=== PATIENT | female | born 1985 | race Caucasian/White ===

== ENCOUNTER 2016-11-17 09:26 | Day surgery (SDC) | payer OTHER ==
[2016-11-10 13:59] VITALS: BMI 24.3
--- NOTE | 2016-11-17 07:01 | HP ---
History & Physical Update - History History: No Change - Physical Physical: No Change - Assessment Assessment: No Change - Plan Plan: No Change (This is my first time meeting the patient. Introduced myself and informed her that I will be assisting Dr. Mendiola during the procedure. Patient is ok with it.)
[~2016-11-17 09:26] MED LIST: CEFAZOLIN 1 GM in DEXTROSE 5%-WATER - 100 ML IVPB ONE; traMADol HCL 50 MG TABLET PO ONE
[2016-11-17] MEDS ORDERED: LIDOCAINE HCL/PF 2% SDV 5ML VIAL ONE (10:38)
[2016-11-17] MEDS ORDERED: ROCURONIUM BROMIDE 50 MG/5 ML VIAL ONE (10:39)
[2016-11-17] MEDS ORDERED: MIDAZOLAM HCL 2 MG/2 ML SINGLE DOSE VIAL ONE (10:39)
[2016-11-17] MEDS ORDERED: PROPOFOL 20 ML ONE ×5 (10:41→12:36)
[2016-11-17] MEDS ORDERED: KETAMINE HCL 200 MG/20 ML VIAL ONE (11:13)
[2016-11-17] MEDS ORDERED: ceFAZolin SODIUM 1 GM VIAL ONE (11:26)
[2016-11-17] MEDS ORDERED: ONDANSETRON 4 MG/2 ML VIAL ONE ×2 (11:27→13:29)
[2016-11-17] MEDS ORDERED: DEXAMETHASONE SOD PHOSPHATE 4 MG/1 ML VIAL ONE (11:27)
[2016-11-17] MEDS ORDERED: PHENYLEPHRINE HCL 10 MG/1 ML SINGLE DOSE VIAL ONE (11:36)
[2016-11-17] MEDS ORDERED: ONDANSETRON 4 MG/2 ML VIAL IVPUSH PRN (11:58)
[2016-11-17] MEDS ORDERED: LACTATED RINGERS SOLUTION 1,000 ML IV SCH ×2 (12:00→13:45)
--- NOTE | 2016-11-17 13:29 | OP ---
Operative Note - Note: Operative Date: 11/17/16 Pre-Operative Diagnosis: Cervical stenosis, radiculopathy Operation: Anterior cervical discectomy/fusion/instrumentation and allograft implant; neuromonitoring Post-Operative Diagnosis: Same as Pre-op Surgeon: Ovidio Mendiola Manager Lab: Devyn Carlson Anesthesiologist/REGISTERED LAND SURVEYOR: Estella Vitale Anesthesia: General Specimens Removed: C5-C6 disc Estimated Blood Loss (mls): 10 Fluid Volume Replaced (mls): 1,000 Operative Report Dictated: Yes
[2016-11-17] MEDS ORDERED: ACETAMINOPHEN 1000 MG/100 ML VIAL (NON FORMULARY) IVPB ONE (13:30)
--- NOTE | 2016-11-17 13:30 | SURG ---
Surgery Clinical Fellow Note Clinical Fellow: Devyn Carlson PA-C Date of Service: 11/17/16 Diagnosis: Cervical stenosis, radiculopathy Procedure: Anterior cervical discectomy/fusion/instrumentation C5-C6 and allograft implant ; neuromonitoring I was present for the entirety of the operative procedure. For further detail, please refer to operative report. Visit type - Case Type Case Type: Scheduled Admission - New patient This patient is new to me today: Yes Date on this admission: 11/17/16
[2016-11-17] MEDS ORDERED: IBUPROFEN 400 MG TABLET (FP) PO PRN (13:41)
[2016-11-17] MEDS ORDERED: HYDROCODONE PO PRN (13:41)
[2016-11-17] MEDS ORDERED: ACETAMINOPHEN PO PRN (13:41)
[2016-11-17] MEDS ORDERED: NAPROXEN SODIUM 440 MG PO PRN (13:41)
[2016-11-17] MEDS ORDERED: CYCLOBENZAPRINE HCL 10 MG TABLET (FP) PO PRN (13:41)
[2016-11-17] MEDS ORDERED: [UNRECOGNIZED DRUG - OTHER] PO PRN (13:41)
[2016-11-17] MEDS ORDERED: morphine CARPU-JECT 4 MG/1 ML DISP.SYRIN IVPUSH PRN (13:42)
[2016-11-17] MEDS ORDERED: KETOROLAC TROMETHAMINE 30 MG/1 ML VIAL IVPUSH PRN (13:42)
[2016-11-17] MEDS ORDERED: diazePAM 5 MG TABLET PO ONE (13:45)
[2016-11-17] MEDS ORDERED: diazePAM 5 MG TABLET ONE (13:49)
[2016-11-17] MEDS ORDERED: ACETAMINOPHEN INJECTION 100 ML IVPB ONE (13:50)
[2016-11-17] MEDS ORDERED: PROMETHAZINE HCL 25 MG/1 ML VIAL ONE (14:24)
[2016-11-17] MEDS ORDERED: PROMETHAZINE HCL 25 MG/1 ML VIAL IVPUSH ONE ×2 (14:25→14:35)
[2016-11-17] MEDS: CEFAZOLIN 1 GM/D5W 50 ML IVPB SCH (17:38)
[2016-11-17] MEDS: HYDROmorphone HCL CARPU-JECT 2 MG/1 ML DISP.SYRIN IVPB PRN ×2 (17:45→21:45)
[2016-11-17] MEDS: ONDANSETRON 4 MG/2 ML VIAL IVPB PRN (19:33)
[2016-11-18] MEDS: CEFAZOLIN 1 GM/D5W 50 ML IVPB SCH (01:08)
[2016-11-18] MEDS: ONDANSETRON 4 MG/2 ML VIAL IVPB PRN ×2 (01:31→05:23)
--- NOTE | 2016-11-18 02:00 | OP ---
DATE OF OPERATION: 11/17/2016 PREOPERATIVE DIAGNOSIS: Herniated disk C5-6. POSTOPERATIVE DIAGNOSIS: Herniated disk C5-6. PROCEDURE PERFORMED: Anterior cervical diskectomy, fusion C5-6, placement instrumentation C5-6, placement of prosthetic cage. SURGEON: Oviido Mendiola M.D. ONLINE ADVERTISING MANAGER: Carrie Das ESTIMATED BLOOD LOSS: 50 mL INTRAVENOUS FLUIDS: Per anesthesia. COMPLICATIONS: There were none. DISPOSITION: Patient brought to the PACU in stable condition. INDICATION FOR SURGERY: The patient is a 31-year-old female who has been suffering from significant pain from her neck down her arm. X-rays and MRI were completed, which noted she had a herniated disk at C5-6. She had gone through an exhaustive course of treatment for this which included medications, physical therapy, as well as injections. Unfortunately, the pain continued to persist in spite of all this. At this point, risks, benefits, and alternatives were discussed and the patient consented to surgery. OPERATIVE NOTE: Patient is brought to the operating room by anesthesia staff. After appropriate patient identification is performed, general anesthesia was administered. Appropriate anesthetic lines were placed. Neural monitors were attached. She is placed supine, the orbit of the arms tucked into the side, the shoulder rolls placed underneath her neck to extend her neck to the point that she could tolerate in the preoperative holding area. A needle was taped onto her neck to charlee off the C5-6 level, and x-rays was taken to confirm this is correct. [place] were removed, and 10 mL of lidocaine with epinephrine was injected into her neck at this time. Her neck was prepped and draped in a sterile manner. At this point a timeout was completed. A 2-inch incision was made on the left side of her neck. Dissection was carried down to the fascia. The platysma was cut in line of the skin incision. Next interval between the sternocleidomastoid muscle as well as strap muscles were developed. Next the interval between the carotid sheath as well as tracheal esophagus was developed. Peanuts were used to elevate off the peritoneal fascia. A spinal needle was placed into the C5-6 disk. An x-ray was taken to confirm this was correct. At this point, the needle was removed. The longus colli muscles were elevated off, and retractor blades were placed in it. A knife was used to incise the disk. Moreno pins were placed into the body of C5 and C6, and distraction was applied. At this point, using a series of pituitaries, Kerrisons and curets, a diskectomy was completed, the end plates were decorticated at this time. A size 7 bone cage filled with bone graft was placed in. Moreno pins were removed. A screw was placed into the body of C5. A screw was placed into the body of C6. AP and lateral x-rays confirmed the instrumentation being in good position. Final tightening was performed. The platysma was closed with 2-0 Vicryl suture. Skin was closed with 3-0 Monocryl suture. Dermabond was applied. Steri-Strips were applied. Sterile dressing was applied. Patient was placed supine on OR bed, extubated in the OR, and brought to the PACU in stable condition. Richardson TINEO/[id number]
[2016-11-18] MEDS: HYDROmorphone HCL CARPU-JECT 2 MG/1 ML DISP.SYRIN IVPB PRN (03:46)
[2016-11-18 05:42] VITALS: BP 92/53; PULSE 55; TEMP 97.5
[2016-11-18] MEDS ORDERED: diphenhydrAMINE HCL 50 MG CAPSULE PO STA (07:01)
[2016-11-18] MEDS ORDERED: diphenhydrAMINE HCL 25 MG CAPSULE (FP) PO ONE (07:25)
--- NOTE | 2016-11-20 12:56 | PATH ---
Surgical Pathology Report Patient Name: NICOLE ARREOLA [facility]. Rec. #: [id number] /Age/Gender: 1985 (Age: 31) / F Account: [id number] Location: [facility], [facility] AMBULATORY Taken: 11/17/2016 Received: 11/18/2016 Reported: 11/20/2016 Physicians: Ovidio Mendiola M.D. Specimen(s) Received C5,6 DISC Clinical History Cervical stenosis Final Diagnosis INTERVERTEBRAL DISC, C5-6, PARTIAL EXCISION: PORTIONS OF INTERVERTEBRAL DISC. Electronically Signed Carter Joshua M.D. Gross Description Received in formalin, labeled "C5-6 disc," is a 2.0 x 1.4 x 0.3 cm aggregate of multiple riojas fragments of fibrocartilaginous tissue. The specimen is submitted in toto in one cassette. 11/19/2016 [facility]
== END 2016-11-18 10:10 | disposition home or self-care (01) ==
LOC: FASU 09:26 → FM/S 15:35 → FASU 11-18 10:10
PROVIDERS: ATTEND Orthopaedic Surgery Orthopaedic Surgery of the Spine
PROC: 0RG10A0 Fusion of Cervical Vertebral Joint with Interbody Fusion Device, Anterior Approach, Anterior Column, Open Approach (ICD-10-PCS; 2016-11-17)
PROC: 0RG10K0 Fusion of Cervical Vertebral Joint with Nonautologous Tissue Substitute, Anterior Approach, Anterior Column, Open Approach (ICD-10-PCS; 2016-11-17)
PROC: 0RB30ZZ Excision of Cervical Vertebral Disc, Open Approach (ICD-10-PCS; principal; 2016-11-17 11:40)
DX: M48.02 Spinal stenosis, cervical region (principal)
CPT/HCPCS: 72050-TC; 76001-TC; 84703; 88304-TC; 94010; 94760

== ENCOUNTER 2018-10-23 17:04 | Inpatient (IN) | payer OTHER ==
--- NOTE | 2018-10-23 17:18 | PDOC ---
History of Present Illness - General Chief Complaint: Pain, Acute Stated Complaint: CRAMPS, 3 WEEK PRG - History of Present Illness Initial Comments: 10/23/18 18:26 33 yo female with no significant PMH presents with chief complaint of severe pain in her pelvic region that started around noon today. She states that her last menstrual period was September 13. She took a Cytotec today around 11:45 and started to have severe pain and cramping shortly after. She endorses some bleeding but denies any passage of products at this time. She is having severe pain which she describes as a "sharp burning fire" Past History - Travel Traveled outside of the country in the last 30 days: No - Past Medical History Allergies/Adverse Reactions: Allergies Allergy/AdvReac Type Severity Reaction Status Date / Time oxycodone HCl [From Percocet] Allergy Severe Difficulty Verified 10/23/18 17:09 Breathing Home Medications: Ambulatory Orders NK [No Known Home Medication] 10/23/18 Anemia: Yes (ON AND OFF FOR YRS) Asthma: No Cancer: No Cardiac Disorders: No CVA: No COPD: No CHF: No Dementia: No Diabetes: No GI Disorders: No Disorders: No HTN: No Hypercholesterolemia: No Liver Disease: No Seizures: No Thyroid Disease: No - Surgical History Abdominal Surgery: No Appendectomy: No Cardiac Surgery: No Cholecystectomy: No Lung Surgery: No Neurologic Surgery: No Orthopedic Surgery: No - Immunization History Td Vaccination: No Immunization Up to Date: No - Suicide/Smoking/Psychosocial Hx Smoking Status: Yes Smoking History: Never smoked Have you smoked in the past 12 months: No Number of Cigarettes Smoked Daily: 4 If you are a former smoker, when did you quit?: 2013 Hx Alcohol Use: Yes (RARE) Drug/Substance Use Hx: No Substance Use Type: Alcohol Hx Substance Use Treatment: Yes Review of Systems - Review of Systems Able to Perform ROS?: Yes Constitutional: Yes: Chills. No: Fever Respiratory: No: Shortness of Breath Cardiac (ROS): No: Chest Pain : Yes: Pain (severe pelvic pain) *Physical Exam - Vital Signs Last Vital Signs Temp Pulse Resp BP Pulse Ox 98 F 72 18 96/56 L 99 10/23/18 17:05 10/23/18 17:05 10/23/18 17:05 10/23/18 17:05 10/23/18 17:05 - Physical Exam Comments: 10/23/18 18:32 GEN: A&O, significant distress likely secondary to pain, pale appearing HEENT: PERRL HEART: RRR, no murmurs noted LUNGS: CTA b/l ABDOMEN: Tenderness to Suprapubic region PELVIC: some bleeding noted, cervical os does not feel open on palpation, no mass felt Moderate Sedation - Procedure Monitoring Vital Signs: Procedure Monitoring Vital Signs Temperature 98 F 10/23/18 17:05 Pulse Rate 72 10/23/18 17:05 Respiratory Rate 18 10/23/18 17:05 Blood Pressure 96/56 L 10/23/18 17:05 O2 Sat by Pulse Oximetry (%) 99 10/23/18 17:05 ED Treatment Course - LABORATORY CBC & Chemistry Diagram: 10/23/18 18:22 10/23/18 18:22 Medical Decision Making - Medical Decision Making 10/23/18 19:10 Pt given 1 mg IV Dilaudid for pain control. Has received here in the past with no reaction. Oxycodone severe allergy noted. CBC wnl. Chemistry pending including serum . Stat Transvaginal US revealed no products in the uterus, unable to visualize US but complex 1.6 x 1.7 x 1.7 mass in the right adnexa. Case discussed with OB public administration teacher who requests Quantitative HCG at this time but is aware of the patient. Signout given to night resident Dr. Matias who will continue management at this point *DC/Admit/Observation/Transfer Diagnosis at time of Disposition: Ectopic , Adnexal mass - Referrals - Patient Instructions - Post Discharge Activity
[2018-10-23] MEDS ORDERED: ACETAMINOPHEN 1000 MG/100 ML VIAL (NON FORMULARY) IVPB ONE (17:28)
[2018-10-23] MEDS ORDERED: KETOROLAC TROMETHAMINE 30 MG/1 ML VIAL IVPUSH ONE (17:41)
[2018-10-23] MEDS ORDERED: ACETAMINOPHEN INJECTION 100 ML IVPB ONE ×2 (18:05→18:36)
[2018-10-23] MEDS ORDERED: KETOROLAC TROMETHAMINE 30 MG/1 ML VIAL ONE (18:05)
[2018-10-23] MEDS ORDERED: HYDROmorphone HCL CARPU-JECT 2 MG/1 ML DISP.SYRIN IVPUSH ONE ×2 (18:25→19:31)
[2018-10-23] MEDS ORDERED: HYDROmorphone HCl 2 MG/ML VIAL ONE ×2 (18:32→19:34)
[2018-10-23 18:33] LABS: BASO % 0.4 % (0-2.0); EOS % 0.4 % (0-4.5); HEMATOCRIT 38.8 % (32.4-45.2); HEMOGLOBIN 13.5 GM/dL (10.7-15.3); LYMPH % 12.5 % (8-40); MCH 31.9 pg (25.7-33.7); MCHC 34.7 g/dl (32.0-36.0); MEAN CELL VOLUME 91.7 fl (80-96); MEAN PLT VOLUME 8.1 fl (7.5-11.1); MONO % 5.5 % (3.8-10.2); NEUT % 81.2 % (42.8-82.8); PLATELET COUNT 230 K/MM3 (134-434); RBC 4.23 M/mm3 (3.60-5.2); RDW 14.9 % (11.6-15.6); WHITE BLOOD COUNT 10.9 K/mm3 (4.0-10.0)
[2018-10-23] MEDS ORDERED: SODIUM CHLORIDE 0.9% 500 ML INFUS.BAG IV ONE (18:37)
[2018-10-23 18:53] LABS: INR 1.03 (0.83-1.09); PROTHROMBIN TIME (PATIENT) 12.1 SEC (9.7-13.0)
[2018-10-23 18:55] LABS: ALBUMIN 4.2 g/dl (3.4-5.0); ALK PHOS 74 U/L (45-117); ANION GAP 13 MMOL/L (8-16); BILIRUBIN,TOTAL 0.6 mg/dL (0.2-1); BLOOD UREA NITROGEN 10 mg/dL (7-18); CALCIUM 8.6 mg/dL (8.5-10.1); CHLORIDE 102 mmol/L (98-107); CO2 19 mmol/L (21-32); CREATININE 0.8 mg/dL (0.55-1.3); GLUCOSE,RANDOM 114 mg/dL (74-106); POTASSIUM 3.3 mmol/L (3.5-5.1); SGOT/AST 18 U/L (15-37); SGPT/ALT 21 U/L (13-61); SODIUM 134 mmol/L (136-145); TOT PROT 7.9 g/dl (6.4-8.2)
[2018-10-23] MEDS ORDERED: ONDANSETRON 4 MG/2 ML VIAL IVPUSH ONE (19:23)
--- NOTE | 2018-10-23 19:27 | PDOC ---
Attending Attestation - HPI HPI: 10/23/18 19:28 The patient is a 33 year old female with no past significant past medical history presents to the emergency department with pelvic pain. The patient presents with severe pelvic pain since 12:00 pm today. The patient states she Cytotec around 11:00 am today and yesterday she took misoprostol. The patient reports shes currently 5 weeks , LMP was September 13. Allergies: Oxycodone HCL. AIR QUALITY SPECIALIST: Dr. Ontiveros. - Physicial Exam PE: 10/23/18 20:16 Vitals: Triage Vital signs reviewed General Appearance: +Moderate distress. well nourished well developed, Head: Atraumatic, normocephalic Neck: Supple;No Nuchal rigidity Chest Wall: Nontender Cardiac: Regular rate and rhythm, no murmurs, no rubs, no gallops, Lungs: Clear to auscultation bilateral, good air movement bilaterally, Abdomen: +Moderate to severe lower abdominal pain. Soft, nondistended. Extremities: Full range of motion to all extremities, no cyanosis, clubbing, or edema Skin: Warm and dry, no rashes or lesions, no petechiae. - Medical Decision Making 10/23/18 19:28 Plan: Transvaginal u/s, medication (for pain control), CBC, CMP, Type and Screen, beta HCG. THIS DOCUMENT HAS BEEN ELECTRONICALLY SIGNED Mario Daniel MD 10/23/2018 18:55 EST EXAM: Transabdominal and transvaginal OB ultrasound FINDINGS: No intrauterine is seen. The ovaries are not well-visualized on this examination. There is a question of a 1.6 x 1.7 x 1.7 cm complex mass in the right adnexa. There is mild free fluid. Ectopic is not ruled out. Phone Calls: Call placed to Dr. Mcfadden at 7:[address] Mcfadden. Call placed to Dr. Mcfadden at 8:23 pm. Case discussed with Dr. Mcfadden. Call placed to Amisha at 8:29 pm. Call placed to Dr. Mcfadden at 10:23 pm. Patient admitted. 10/23/18 21:45 Documentation prepared by Carine Yu, acting as medical laboratory technician for Ayaan Mo MD. <Carine Yu - Last Filed: 10/23/18 22:28> - Resident Resident Name: Marcial Wild - ED Attending Attestation I have performed the following: I have examined & evaluated the patient, The case was reviewed & discussed with the resident, I agree w/resident's findings & plan, Exceptions are as noted - Critical Care Time Total Critical Care Time: 66 Critical Care Statement: The care of this patient involved high complexity decision making to prevent further life threatening deterioration of the patient 's condition and/or to evaluate & treat vital organ system(s) failure or risk of failure. - Medical Decision Making Patient started Cytotec yesterday for planned Today presented to the emergency department with 10 out of 10 pain and small amount of bleeding Moderate to severe lower abdominal discomfort on examination patient sent to ultrasound to rule out ectopic Reevaluation hemoglobin and hematocrit stable at this point patient not tachycardic blood pressure in the 90 systolic but this has remained stable Case discussed with Dr. Zuniga AIR QUALITY SPECIALIST multiple times Nondiagnostic ultrasound patient's vital signs stable pain is improved is currently a 5 out of 10 Reevaluation 10 PM repeat CBC with small drop the patient did receive 1 L fluid appears more stable at this time these results were relayed to AIR QUALITY SPECIALIST At this time we'll admit to the service of Dr. Zuniga he will consult on the patient he has asked for the patient to be made nothing by mouth for a repeat CBC at 2 AM and 4L or to be given at 1 25 mL per hour. We'll transfer care to Dr. Zuniga for further management. 10/24/18 00:47 Reevaluation 12:30 AM patient transferred to floor [address] Zuniga informed of most recent patient status patient in 5 out of 10 pain this is been persistent constant for the last several hours her vital signs have remained stable 3 W. nurse notified to contact Dr. Zuniga for any increasing in pain decreasing hemoglobin and hematocrit or change in vital signs <Ayaan Mo - Last Filed: 10/24/18 20:21>
[2018-10-23] MEDS ORDERED: ONDANSETRON 4 MG/2 ML VIAL ONE (19:30)
[2018-10-23 21:29] LABS: HEMOGLOBIN 11.4 GM/dL (10.7-15.3); MCH 31.7 pg (25.7-33.7); MEAN CELL VOLUME 91.2 fl (80-96); RBC 3.59 M/mm3 (3.60-5.2); WHITE BLOOD COUNT 12.9 K/mm3 (4.0-10.0)
[2018-10-23 21:30] LABS: BASO % 0.3 % (0-2.0); EOS % 0.1 % (0-4.5); LYMPH % 5.5 % (8-40); MCHC 34.8 g/dl (32.0-36.0); MEAN PLT VOLUME 7.5 fl (7.5-11.1); MONO % 3.2 % (3.8-10.2); NEUT % 90.9 % (42.8-82.8); PLATELET COUNT 168 K/MM3 (134-434); RDW 14.6 % (11.6-15.6)
[2018-10-23 21:41] LABS: HEMATOCRIT 32.7 % (32.4-45.2)
[2018-10-23 21:57] LABS: BASO % 0.3 % (0-2.0); HEMATOCRIT 34.1 % (32.4-45.2); HEMOGLOBIN 11.7 GM/dL (10.7-15.3); LYMPH % 5.5 % (8-40); MCH 31.7 pg (25.7-33.7); MCHC 34.3 g/dl (32.0-36.0); MEAN CELL VOLUME 92.3 fl (80-96); MEAN PLT VOLUME 7.8 fl (7.5-11.1); MONO % 3.2 % (3.8-10.2); PLATELET COUNT 175 K/MM3 (134-434); RDW 15.2 % (11.6-15.6); WHITE BLOOD COUNT 13.2 K/mm3 (4.0-10.0)
[2018-10-23] MEDS ORDERED: LACTATED RINGERS SOLUTION 1,000 ML/1,000 ML INFUS.BAG IV SCH (22:30)
[2018-10-23 23:37] LABS: ANISOCYTOSIS 1+; MACROCYTOSIS 1+; PLATELET ESTIMATE ADEQUATE
[2018-10-24] MEDS ORDERED: ACETAMINOPHEN 1000 MG/100 ML VIAL (NON FORMULARY) IVPB PRN (01:40)
[2018-10-24] MEDS ORDERED: HYDROmorphone HCl 2 MG/ML VIAL IVPUSH ONE (01:45)
[2018-10-24 01:48] VITALS: BMI 24.4
--- NOTE | 2018-10-24 03:24 | PN ---
Progress Note (short form) - Note Progress Note: patient evaluated,and examined no distress,comfortable after pain meds Last Vital Signs Temp Pulse Resp BP Pulse Ox 98.8 F 73 20 105/64 100 10/24/18 01:45 10/24/18 01:45 10/24/18 01:45 10/24/18 01:45 10/24/18 02:00 abdomen soft, no distension, no rebound, no guarding pelvic exam vaginal mild bleeding os closed no CMT utrus prominat , mild tenderness adenexa no masses, non tender cul de sac non tender impression possible ,r/o ectopic revaluate after cbc
--- NOTE | 2018-10-24 03:40 | HP ---
Past Medical History - Primary Care Physician PCP:: Luis Mcfadden - Admission Chief Complaint: vaginal bleeding, pelvic pain, r/o ectopic History of Present Illness: 33 yo f one previous c/s lmp 09/16/18, [place] by her inventory associate and [place] [facility] [place] sono showed 5 weeks GS , no pole , wanted termination, took cytotec yesterday, had some vaginal bleeding but states did not pass clots or POC , c/o severe pelvic discomfort, cramps,and burning sensation,, sacle 10, requiring Dilauded,and Torodol, and iv tylenol , HCG 5000, sono no iup,was hypotensive in ER , felt dizzi,, admitted for r/o ectopic , pain dis porportionate for spontneous , previous c/s risks for ectopic History Source: Patient Limitations to Obtaining History: No Limitations - Past Medical History ...: 3 ...Para: 1 ...Induced : 1 Additional OB History: c/s - Past Surgical History Past Surgical History: Yes: Hx Myomectomy: No Hx Transabdominal Cerclage: No - Smoking History Smoking history: Never smoked Have you smoked in the past 12 months: No Aproximately how many cigarettes per day: 4 If you are a former smoker, when did you quit?: 2013 - Alcohol/Substance Use Hx Alcohol Use: Yes (RARE) - Social History Usual Living Arrangement: Yes: With Spouse Home Medications - Allergies Allergies/Adverse Reactions: Allergies Allergy/AdvReac Type Severity Reaction Status Date / Time oxycodone HCl [From Percocet] Allergy Severe Difficulty Verified 10/23/18 17:09 Breathing - Home Medications Home Medications: Ambulatory Orders NK [No Known Home Medication] 10/23/18 Review of Systems - Review of Systems Constitutional: reports: Diaphoresis Eyes: reports: No Symptoms HENT: reports: No Symptoms Neck: reports: No Symptoms Cardiovascular: reports: No Symptoms Respiratory: reports: No Symptoms Gastrointestinal: reports: Abdominal Pain Genitourinary: reports: Vaginal Bleeding Breasts: reports: No Symptoms Reported Musculoskeletal: reports: No Symptoms Integumentary: reports: No Symptoms Neurological: reports: No Symptoms Endocrine: reports: No Symptoms Hematology/Lymphatic: reports: No Symptoms Psychiatric: reports: No Symptoms Physical Exam-CIVIL TRANSPORTATION ENGINEER Vital Signs: Vital Signs Temperature 97.9 F 10/24/18 03:00 Pulse Rate 59 L 10/24/18 03:00 Respiratory Rate 18 10/24/18 03:00 Blood Pressure 97/46 L 10/24/18 03:00 O2 Sat by Pulse Oximetry (%) 96 10/24/18 03:34 Constitutional: Yes: Well Nourished, No Distress, Calm Eyes: Yes: WNL, Conjunctiva Clear, EOM Intact HENT: Yes: WNL, Atraumatic, Normocephalic Neck: Yes: WNL, Supple, Trachea Midline Cardiovascular: Yes: WNL, Regular Rate and Rhythm Respiratory: Yes: WNL, Regular, CTA Bilaterally Gastrointestinal: Yes: WNL ...Rectal Exam: Yes: WNL Renal/: Yes: WNL Pelvis: Yes: WNL External Genitalia: Yes: Normal Vaginal Exam: Yes: Bleeding Cervix: Yes: Bleeding Uterus: Yes: Tender Adnexa: Tender: Left, Right, Not Palpable: Left, Right Breast(s): Yes: WNL Musculoskeletal: Yes: WNL Extremities: Yes: WNL Edema: No Integumentary: Yes: WNL Neurological: Yes: WNL, Alert, Oriented ...Motor Strength: WNL Psychiatric: Yes: WNL, Alert, Oriented Labs: CBC, BMP 10/23/18 21:42 10/23/18 18:22 Imaging - Results Chest X-ray: Image Reviewed Problem List - Problem (1) Pelvic pain Code(s): R10.2 - PELVIC AND PERINEAL PAIN (2) Vaginal bleeding Code(s): N93.9 - ABNORMAL UTERINE AND VAGINAL BLEEDING, UNSPECIFIED (3) Ectopic Code(s): O00.90 - UNSPECIFIED ECTOPIC WITHOUT INTRAUTERINE Qualifiers: Location of ectopic : tubal Intrauterine status: without intrauterine Laterality: left Qualified Code(s): O00.102 - Left tubal without intrauterine Assessment/Plan has sever pain , not responded to morphine , ANSAIDs, still has pain level 8, c/ o dizziness, ectopic can not r/o, posible psudosac on previous sono, possible tubal after taking cytotec admit serial hcg setial cbc revaluate, if H&H continue to drop significantly advised laparosopy monitor frequent VS iv hydration, type and x , 2 units case discussed with patient ,agreed with management
[2018-10-24 03:54] LABS: BASO % 0.5 % (0-2.0); HEMATOCRIT 32.5 % (32.4-45.2); HEMOGLOBIN 11.2 GM/dL (10.7-15.3); LYMPH % 10.8 % (8-40); MCH 31.7 pg (25.7-33.7); MCHC 34.5 g/dl (32.0-36.0); MEAN PLT VOLUME 8.3 fl (7.5-11.1); MONO % 4.3 % (3.8-10.2); NEUT % 84.4 % (42.8-82.8); PLATELET COUNT 180 K/MM3 (134-434); RBC 3.54 M/mm3 (3.60-5.2); RDW 14.6 % (11.6-15.6)
[2018-10-24 08:49] LABS: BASO % 0.3 % (0-2.0); EOS % 0.4 % (0-4.5); HEMATOCRIT 30.9 % (32.4-45.2); HEMOGLOBIN 10.7 GM/dL (10.7-15.3); LYMPH % 18.8 % (8-40); MCHC 34.8 g/dl (32.0-36.0); MEAN CELL VOLUME 92.1 fl (80-96); MEAN PLT VOLUME 7.6 fl (7.5-11.1); MONO % 6.6 % (3.8-10.2); NEUT % 73.9 % (42.8-82.8); PLATELET COUNT 162 K/MM3 (134-434); RBC 3.35 M/mm3 (3.60-5.2); RDW 14.7 % (11.6-15.6); WHITE BLOOD COUNT 10.8 K/mm3 (4.0-10.0)
--- NOTE | 2018-10-24 12:27 | PN ---
Progress Note (short form) - Note Progress Note: still has mild low abdominal pain pain scale 3 , no dizziness , no shoulder pain wants to eat CBC, BMP 10/24/18 08:30 10/23/18 18:22 Last Vital Signs Temp Pulse Resp BP Pulse Ox 98.7 F 70 18 99/55 L 100 10/24/18 11:00 10/24/18 11:00 10/24/18 11:00 10/24/18 11:00 10/24/18 08:00 abdomen soft, no distension,no cva pelvic vagina mild dark bleeding from os, cx non tender, uterus mild tenderness no adenexa tenderness impression VS stable , there is drop in H&H , repeat TVS no intrauterine fluid collection , vaginal bleeding and iv hydration could account for some drop in H& H hcg significant drop impression , possible tubal , possible spontaneous with severe pain secondary to cytotec plan cont . monitor VS repeat H&H in 8 hours . if stable cab be d/c home with instruction and follow up HCG in am Problem List - Problems (1) Pelvic pain Code(s): R10.2 - PELVIC AND PERINEAL PAIN (2) Vaginal bleeding Code(s): N93.9 - ABNORMAL UTERINE AND VAGINAL BLEEDING, UNSPECIFIED (3) Ectopic Code(s): O00.90 - UNSPECIFIED ECTOPIC WITHOUT INTRAUTERINE Qualifiers: Location of ectopic : tubal Intrauterine status: without intrauterine Laterality: left Qualified Code(s): O00.102 - Left tubal without intrauterine
[2018-10-24 19:02] LABS: BASO % 0.4 % (0-2.0); EOS % 0.7 % (0-4.5); HEMATOCRIT 32.1 % (32.4-45.2); HEMOGLOBIN 10.9 GM/dL (10.7-15.3); LYMPH % 29.9 % (8-40); MCH 31.7 pg (25.7-33.7); MCHC 34.1 g/dl (32.0-36.0); MEAN CELL VOLUME 93.2 fl (80-96); MEAN PLT VOLUME 7.9 fl (7.5-11.1); MONO % 8.2 % (3.8-10.2); NEUT % 60.8 % (42.8-82.8); PLATELET COUNT 173 K/MM3 (134-434); RBC 3.44 M/mm3 (3.60-5.2); RDW 15.2 % (11.6-15.6); WHITE BLOOD COUNT 7.9 K/mm3 (4.0-10.0)
[2018-10-24 20:05] VITALS: BP 104/53; PULSE 70; TEMP 98.3
--- NOTE | 2018-10-25 11:27 | DS ---
Physical Exam-SKEIN YARN DYER Vital Signs: Vital Signs Temperature 98.3 F 10/24/18 20:00 Pulse Rate 70 10/24/18 20:00 Respiratory Rate 20 10/24/18 20:00 Blood Pressure 104/53 L 10/24/18 20:00 O2 Sat by Pulse Oximetry (%) 100 10/24/18 08:00 Constitutional: Yes: Well Nourished, No Distress, Calm Eyes: Yes: WNL, Conjunctiva Clear, EOM Intact HENT: Yes: WNL, Atraumatic, Normocephalic Neck: Yes: WNL, Supple, Trachea Midline Cardiovascular: Yes: WNL, Regular Rate and Rhythm Respiratory: Yes: WNL, Regular, CTA Bilaterally Gastrointestinal: Yes: WNL ...Rectal Exam: Yes: WNL Renal/: Yes: WNL Pelvis: Yes: WNL External Genitalia: Yes: Normal Vaginal Exam: Yes: Bleeding Cervix: Yes: Bleeding Adnexa: Not Palpable: Left, Right Breast(s): Yes: WNL Musculoskeletal: Yes: WNL Extremities: Yes: WNL Edema: No Integumentary: Yes: WNL Neurological: Yes: WNL, Alert, Oriented ...Motor Strength: WNL Psychiatric: Yes: WNL, Alert, Oriented Labs: CBC, BMP 10/24/18 18:22 10/23/18 18:22 Discharge Summary Reason For Visit: ECTOPIC aborting LT tubal ectopic pregnacy Hospital Course: H&H stablized . pain improved , d/c home with follow up HCG, and CBC in office tomorrow pain management, serial hcg, cbc, TVS Condition: Good - Instructions Diet, Activity, Other Instructions: regular diet, follow up in office in am , if pain, dizziness , heavy vaginal bleeding call , follow up in office in am Referrals: Luis Mcfadden MD [Staff Physician] - Disposition: HOME - Home Medications Comprehensive Discharge Medication List: Ambulatory Orders Ibuprofen [Motrin -] 400 mg PO QID #28 tablet 10/24/18
== END 2018-10-24 20:35 | disposition home or self-care (01) | DRG 833 ==
LOC: JER 17:04 → JERBED 22:27 → J3W 10-24 00:55
PROVIDERS: ADMIT Obstetrics & Gynecology; ATTEND Obstetrics & Gynecology
DX: O00.102 Left tubal pregnancy without intrauterine pregnancy (principal); N93.9 Abnormal uterine and vaginal bleeding, unspecified; R10.2 Pelvic and perineal pain
CPT/HCPCS: 36415; 76700-TC; 76817-TC; 76830-TC; 80053; 84702; 84703; 85025; 85610; 86850; 86900; 86901; 86922; 99283-25; J0131